=== PATIENT | female | born 2000 | race Hispanic/Latino ===

== ENCOUNTER 2022-07-26 20:39 | Emergency (ER) | payer OTHER ==
--- OUTSIDE RECORDS SUMMARY | 2022-07-26 20:44 | XMS REPORT | Continuity of Care Document ---
:2000 Author Organization [facility] [facility] t Address [address] [place] [address] Care Team Providers Name Role Phone Vero Gardiner Primary Care Physician CARMINE MOODY Attending Clinician Unavailable Carmine Moody NP Attending Clinician Doctor Unassigned, Aldora Attending Clinician Unavailable Erica Bone RN Attending Clinician Unavailable JR CHARLES Attending Clinician Unavailable Shiv Mcgrath Attending Clinician Joys Van Attending Clinician Payers Payer Name Policy Type Policy Number Effective Date Expiration Date Vilma marie [facility] TAP[facility] [id number] 2018 00:00:00 Problems Condition Condition Condition Status Onset Resolution Last Treating Co mments Source Name Details Category Date Date Treatment Clinician Date COVID-19 COVID-19 Disease Active 2019-11 Unive rs virus IgG virus IgG 2-04 ity of antibody antibody 00:00: [place] detected detected 00 Medica l Branch COVID-19 COVID-19 Disease Active 2019-11 Unive rs virus IgG virus IgG 2-04 ity of antibody antibody 00:00: [place] detected detected 00 Medica l Branch BMI BMI Disease Active Univers 30.0-30.9, 30.0-30.9, 6-25 it y of adult adult 00:00: [place] 00 Medical Branch 39 weeks 39 weeks Disease Resolve 2019-112021-03-12 2021-03-12 Univers gestation gestation d 2-19 00:00:00 20:37:50 ity of of of 00:00: [place] 00 [facility] samia Branch Anemia of Anemia of Disease Resolve 2021-03-12 2021-03-12 Univers mother in mother in d 9 00:00:00 20:37:48 it[place] of , , [place] antepartum antepartum 00 Me dical Branch Rh Rh Disease Resolve 2021-03-12 2021-03-12 Univers negative negative d 05-02 00:00:00 20:37:47 it y of state in state in 00:00: [place] antepartum antepartum 00 Me dical period period Branch High risk High risk Disease Resolve 2021-03-12 2021-03-12 Univers teen teen d 6- 00:00:00 20:37:44 [place] second in second 00 Medi samia trimester trimester Bran ch Obesity Obesity Disease Resolve 2021-03-12 2021-03-12 Univers affecting affecting d 6 00:00:00 20:37:46 [place] 00 Medi samia trimester trimester Bran ch Abnormal Abnormal Disease Resolve 2020-05-01 2020-05-01 Univers vision vision d 06-15 00:00:00 15:10:01 ity of screen screen 00:00: [place] 00 Medical Branch Pediatric Pediatric Disease Resolve 2020-05-01 2020-05-01 Univers overweight overweight d 06-15 00:00:00 15:10:03 ity of 00:00: [place] 00 Medical Branch History of History of Disease Resolve 2020-05-01 2020-05-01 Univers eczema as eczema as d 06-15 00:00:00 15:10:02 ity of a child a child 00:00: [place] 00 Medical Branch Allergies, Adverse Reactions, Alerts Allergy Allergy Status Severity Reaction(s) Onset Inactive Treating Comm ents Source Name Type Date Date Clinician NO KNOWN Drug Active Univers ALLERGIE Class ity of S [facility] Social History Social Habit Start Date Stop Date Quantity Comments Source History of Passive smoker [facility] tobacco use [facility] Exposure to 2022-06-24 2022-07-04 Not sure [facility] SARS-CoV-2 00:00:00 11:08:00 [facility] (event) [place] Alcohol intake 2022-02-10 2022-02-10 0 /d [facility] 00:00:00 00:00:00 [facility] Tobacco use and 2021-03-12 2021-03-12 Smokeless tobacco Un iversity of exposure 00:00:00 00:00:00 non-user [facility] Sex Assigned At [birth year] Universit y of 00:00:00 00:00:00 [facility] Smoking Status Start Date Stop Date Source Never smoked tobacco [facility] Medications Ordered Filled Start Stop Current Ordering Indication Dosage Frequency Signature Comments Components Source Medication Medication Date Date Medication? Clinician (SIG) Name Name methylPREDN Yes [id number] Take by Univers ISolone 4 8-29 mouth ity of mg tablets 00:00: [place]INSTRU [place] CTIONS. Medical follow Branch package directions methylPREDN Yes [id number] Take by Univers ISolone 4 8-29 mouth ity of mg tablets 00:00: [place] CTIONS. Medical follow Branch package directions benzonatate Yes [id number] 100mg Take 1 Univers 100 mg 8-28 capsule by ity of capsule 00:00: mouth 3 [place] 00 (three) Medical times Branch daily as needed for Cough. benzonatate Yes [id number] 100mg Take 1 Univers 100 mg 8-28 capsule by ity of capsule 00:00: mouth 3 [place] 00 (three) Medical times Branch daily as needed for Cough. azithromyci 2021- Yes [id number] Take 2 Univers n 250 mg 8-28 -03 tablets by ity of tablet 00:00: 04:59 mouth [place] 00 :00 daily for Medical 1 day, Branch THEN 1 tablet daily for 4 days. Take 500 mg day 1, then 250 mg days 2 to 5. azithromyci 2021- Yes [id number] Take 2 Univers n 250 mg 07-04 tablets by ity of tablet 00:00: 04:59 mouth [place] 00 :00 daily for Medical 1 day, Branch THEN 1 tablet daily for 4 days. Take 500 mg day 1, then 250 mg days 2 to 5. etonogestre 2021- No [id number] 68mg Univers L 02-10-06 ity of (NEXPLANON) 15:45: 14:41 [place] implant 68 00 :00 Medical mg Branch etonogestre 2021- No [id number] 68mg 68 mg, Univers L 02-10 Subdermal, ity of (NEXPLANON) 15:45: 14:41 ONCE NOW, [place] implant 68 00 :00 1 dose, On Med ical mg 02/10/22 Branch at 1045, Routine
Use approved by: [employer] No known No Univers medications 4-06 ity of 10:05: [address] No known No No known Unive rs medications -06 medication it y of 10:05: s [address] docusate 2019-11- No 240mg Take 1 Unive rs calcium 240 12-28 (spontaneou capsule by ity of mg capsule 00:00: 00:00 s vaginal mouth once [place] 00 :00 delivery) daily as Medica l needed for Branch Constipati on. ferrous 2019-11- No 325mg Take 1 Univer s sulfate 325 12-28 (spontaneou tablet by ity of mg (65 mg 00:00: 00:00 s vaginal mouth 2 [place] iron) 00 :00 delivery) (two) Medical tablet times Branch daily. ibuprofen 2019-11- No 600mg Take 1 Univ ers 600 mg 12-28- (spontaneou tablet by ity of tablet 00:00: 00:00 [place] vaginal [place] 00 :[place] delivery) every 6 Medical (six) Branch hours as needed (Pain). Take with food or milk. 2019-11- No 1{tbl} Take 1 Univ ers vitamin 12-28- (spontaneou tablet by ity of w/FA tablet 00:00: 00:00 s vaginal mouth [place] 00 :00 delivery) daily. Medical Branch docusate 2019-11- No 240mg Take 1 Unive rs calcium 240 12-28 (spontaneou capsule by ity of mg capsule 00:00: 00:00 s vaginal mouth once [place] 00 :00 delivery) daily as Medica l needed for Branch Constipati on. ferrous 2019-11- No 325mg Take 1 Univer s sulfate 325 12-28 (spontaneou tablet by ity of mg (65 mg 00:00: 00:00 s vaginal mouth 2 [place] iron) 00 :00 delivery) (two) Medical tablet times Branch daily. ibuprofen 2019-11- No 600mg Take 1 Univ ers 600 mg 12-28 (spontaneou tablet by ity of tablet 00:00: 00:00 [place] vaginal [place] 00 :[place] delivery) every 6 Medical (six) Branch hours as needed (Pain). Take with food or milk. 2019-11- No 1{tbl} Take 1 Univ ers vitamin 12-28 (spontaneou tablet by ity of w/FA tablet 00:00: 00:00 s vaginal mouth [place] 00 :00 delivery) daily. Medical Branch ferrous 2019-11- No Anemia of 325mg Take 1 U nivers sulfate 325 11-12 mother in tablet by ity of mg (65 mg 00:00: 00:00 , mouth 2 [place] iron) 00 :00 antepartum (two) Medical tablet times Branch daily. ascorbic 2019-11- No Anemia of 500mg Take 1 Univers acid, 11-12- mother in tablet by ity of vitamin C, 00:00: 00:00 , mouth 3 [place] 500 mg 00 :00 antepartum (three) Medi samia tablet times Branch daily. ferrous 2019-11- No Anemia of 325mg Take 1 U nivers sulfate 325 11-12- mother in tablet by ity of mg (65 mg 00:00: 00:00 , mouth 2 [place] iron) 00 :00 antepartum (two) Medical tablet times Branch daily. ascorbic 2019-11- No Anemia of 500mg Take 1 Univers acid, 11-12 mother in tablet by ity of vitamin C, 00:00: 00:00 , mouth 3 [place] 500 mg 00 :00 antepartum (three) Medi samia tablet times Branch daily. PNV 67-iron 2020- No High risk 1{capsu Take 1 Univers ps-folate 05-29 teen le} capsule by ity of no.1-dha 00:00: 00:00 [place] (VITAFOL 00 :00 in second daily. Medi samia ULTRA) 29 trimester Branc h mg iron- 1 mg-200 mg Cap PNV 67-iron 2020- No High risk 1{capsu Take 1 Univers ps-folate 05-29 teen le} capsule by ity of no.1-dha 00:00: 00:00 [place] (VITAFOL 00 :00 in second daily. Medi samia ULTRA) 29 trimester Branc h mg iron- 1 mg-200 mg Cap Immunizations Ordered Immunization Filled Immunization Date Status Commen ts Source Name Name TDAP 2020-08-14 Completed University of 00:00:00 [facility] Rho (d) Immune 2020-08-14 Completed University of Globulin 00:00:00 [facility] TDAP 2020-08-14 Completed University of 00:00:00 [facility] Rho (d) Immune 2020-08-14 Completed University of Globulin 00:00:00 [facility] TDAP 2020-08-14 Completed University of 00:00:00 [facility] Rho (d) Immune 2020-08-14 Completed University of Globulin 00:00:00 [facility] TDAP 2020-08-14 Completed University of 00:00:00 [facility] Rho (d) Immune 2020-08-14 Completed University of Globulin 00:00:00 [facility] TDAP 2020-08-14 Completed University of 00:00:00 [facility] Rho (d) Immune 2020-08-14 Completed University of Globulin 00:00:00 [facility] TDAP 2020-08-14 Completed University of 00:00:00 [facility] Rho (d) Immune 2020-08-14 Completed University of Globulin 00:00:00 [facility] TDAP 2020-08-14 Completed University of 00:00:00 [facility] Rho (d) Immune 2020-08-14 Completed University of Globulin 00:00:00 [facility] Influenza Virus 2020-08-01 Completed Universit y of Vaccine Quad .5 mL IM 00:00:00 [place] [facility] 6+ MO Branch Influenza Virus 2020-08-01 Completed Universit y of Vaccine Quad .5 mL IM 00:00:00 [place] 6+ MO Branch Influenza Virus 2020-08-01 Completed Universit y of Vaccine Quad .5 mL IM 00:00:00 [place] 6+ MO Branch Influenza Virus 2020-08-01 Completed Universit y of Vaccine Quad .5 mL IM 00:00:00 [place] 6+ MO Branch Influenza Virus 2020-08-01 Completed Universit y of Vaccine Quad .5 mL IM 00:00:00 [place] 6+ MO Branch Influenza Virus 2020-08-01 Completed Universit y of Vaccine Quad .5 mL IM 00:00:00 [place] 6+ MO Branch Influenza Virus 2020-08-01 Completed Universit y of Vaccine Quad .5 mL IM 00:00:00 [place] 6+ MO Branch Meningococcal 2018-12-21 Completed University of Polysaccharide 00:00:00 [place] Medi samia (groups A, C, Y and Branc h W-135) conjugate vaccine (MCV4P) Meningococcal B, OMV 2018-12-21 Completed Univ ersity of 00:00:00 [facility] Meningococcal 2018-12-21 Completed University of Polysaccharide 00:00:00 [place] Medi samia (groups A, C, Y and Branc h W-135) conjugate vaccine (MCV4P) Meningococcal B, OMV 2018-12-21 Completed Univ ersity of 00:00:00 [facility] Meningococcal 2018-12-21 Completed University of Polysaccharide 00:00:00 [place] Medi samia (groups A, C, Y and Branc h W-135) conjugate vaccine (MCV4P) Meningococcal B, OMV 2018-12-21 Completed Univ ersity of 00:00:00 [facility] Meningococcal 2018-12-21 Completed University of Polysaccharide 00:00:00 [place] Medi samia (groups A, C, Y and Branc h W-135) conjugate vaccine (MCV4P) Meningococcal B, OMV 2018-12-21 Completed Univ ersity of 00:00:00 [facility] Meningococcal 2018-12-21 Completed University of Polysaccharide 00:00:00 [place] Medi samia (groups A, C, Y and Branc h W-135) conjugate vaccine (MCV4P) Meningococcal B, OMV 2018-12-21 Completed Univ ersity of 00:00:00 [facility] Branch Meningococcal 2018-12-21 Completed University of Polysaccharide 00:00:00 [place] Medi samia (groups A, C, Y and Branc h W-135) conjugate vaccine (MCV4P) Meningococcal B, OMV 2018-12-21 Completed Univ ersity of 00:00:00 [facility] Branch Meningococcal 2018-12-21 Completed University of Polysaccharide 00:00:00 [place] Medi samia (groups A, C, Y and Branc h W-135) conjugate vaccine (MCV4P) Meningococcal B, OMV 2018-12-21 Completed Univ ersity of 00:00:00 [facility] HPV9 2016-12-30 Completed University of 00:00:00 [facility] HPV9 2016-12-30 Completed University of 00:00:00 [facility] HPV9 2016-12-30 Completed University of 00:00:00 [facility] HPV9 2016-12-30 Completed University of 00:00:00 [facility] Branch HPV9 2016-12-30 Completed University of 00:00:00 [facility] Branch HPV9 2016-12-30 Completed University of 00:00:00 [facility] Branch HPV9 2016-12-30 Completed University of 00:00:00 [facility] HPV9 2016-06-15 Completed University of 00:00:00 [facility] HPV9 2016-06-15 Completed University of 00:00:00 [facility] HPV9 2016-06-15 Completed University of 00:00:00 [facility] Branch HPV9 2016-06-15 Completed University of 00:00:00 [facility] Branch HPV9 2016-06-15 Completed University of 00:00:00 [facility] Branch HPV9 2016-06-15 Completed University of 00:00:00 [facility] Branch HPV9 2016-06-15 Completed University of 00:00:00 [facility] HPV 2015-06-21 Completed University of 00:00:00 [facility] Meningococcal Vaccine 2015-06-21 Completed Uni versity of 00:00:00 [facility] TDAP 2015-06-21 Completed University of 00:00:00 [facility] HPV 2015-06-21 Completed University of 00:00:00 [facility] Meningococcal Vaccine 2015-06-21 Completed Uni versity of 00:00:00 [facility] TDAP 2015-06-21 Completed University of 00:00:00 [facility] HPV 2015-06-21 Completed University of 00:00:00 [facility] Meningococcal Vaccine 2015-06-21 Completed Uni versity of 00:00:00 [facility] Branch TDAP 2015-06-21 Completed University of 00:00:00 [facility] HPV 2015-06-21 Completed University of 00:00:00 [facility] Meningococcal Vaccine 2015-06-21 Completed Uni versity of 00:00:00 [facility] Branch TDAP 2015-06-21 Completed University of 00:00:00 [facility] HPV 2015-06-21 Completed University of 00:00:00 [facility] Meningococcal Vaccine 2015-06-21 Completed Uni versity of 00:00:00 [facility] Branch TDAP 2015-06-21 Completed University of 00:00:00 [facility] HPV 2015-06-21 Completed University of 00:00:00 [facility] Meningococcal Vaccine 2015-06-21 Completed Uni versity of 00:00:00 [facility] Branch TDAP 2015-06-21 Completed University of 00:00:00 [facility] HPV 2015-06-21 Completed University of 00:00:00 [facility] Meningococcal Vaccine 2015-06-21 Completed Uni versity of 00:00:00 [facility] TDAP 2015-06-21 Completed University of 00:00:00 [facility] Influenza Virus 2012-09-26 Completed Universit y of Vaccine 00:00:00 [facility] Influenza Virus 2012-09-26 Completed Universit y of Vaccine 00:00:00 [facility] Influenza Virus 2012-09-26 Completed Universit y of Vaccine 00:00:00 [facility] Influenza Virus 2012-09-26 Completed Universit y of Vaccine 00:00:00 [facility] Influenza Virus 2012-09-26 Completed Universit y of Vaccine 00:00:00 [facility] Influenza Virus 2012-09-26 Completed Universit y of Vaccine 00:00:00 [facility] Influenza Virus 2012-09-26 Completed Universit y of Vaccine 00:00:00 [facility] Influenza Virus 2011-09-29 Completed Universit y of Vaccine 00:00:00 [facility] Influenza Virus 2011-09-29 Completed Universit y of Vaccine 00:00:00 [facility] Influenza Virus 2011-09-29 Completed Universit y of Vaccine 00:00:00 [facility] Influenza Virus 2011-09-29 Completed Universit y of Vaccine 00:00:00 [facility] Influenza Virus 2011-09-29 Completed Universit y of Vaccine 00:00:00 [facility] Influenza Virus 2011-09-29 Completed Universit y of Vaccine 00:00:00 [facility] Influenza Virus 2011-09-29 Completed Universit y of Vaccine 00:00:00 [facility] DTAP 2007-03-06 Completed University of 00:00:00 [facility] HEPATITIS A 2007-03-06 Completed University of 00:00:00 [facility] Polio (IPV/OPV) 2007-03-06 Completed Universit y of 00:00:00 [facility] Proquad 2007-03-06 Completed University of (MMR/VARICELLA) 00:00:00 [facility] DTAP 2007-03-06 Completed University of 00:00:00 [facility] HEPATITIS A 2007-03-06 Completed University of 00:00:00 [facility] Polio (IPV/OPV) 2007-03-06 Completed Universit y of 00:00:00 [facility] Proquad 2007-03-06 Completed University of (MMR/VARICELLA) 00:00:00 [facility] DTAP 2007-03-06 Completed University of 00:00:00 [facility] HEPATITIS A 2007-03-06 Completed University of 00:00:00 [facility] Polio (IPV/OPV) 2007-03-06 Completed Universit y of 00:00:00 [facility] Proquad 2007-03-06 Completed University of (MMR/VARICELLA) 00:00:00 [facility] DTAP 2007-03-06 Completed University of 00:00:00 [facility] HEPATITIS A 2007-03-06 Completed University of 00:00:00 [facility] Polio (IPV/OPV) 2007-03-06 Completed Universit y of 00:00:00 [facility] Proquad 2007-03-06 Completed University of (MMR/VARICELLA) 00:00:00 [facility] DTAP 2007-03-06 Completed University of 00:00:00 [facility] HEPATITIS A 2007-03-06 Completed University of 00:00:00 [facility] Polio (IPV/OPV) 2007-03-06 Completed Universit y of 00:00:00 [facility] Proquad 2007-03-06 Completed University of (MMR/VARICELLA) 00:00:00 [facility] DTAP 2007-03-06 Completed University of 00:00:00 [facility] HEPATITIS A 2007-03-06 Completed University of 00:00:00 [facility] Polio (IPV/OPV) 2007-03-06 Completed Universit y of 00:00:00 [facility] Proquad 2007-03-06 Completed University of (MMR/VARICELLA) 00:00:00 [facility] DTAP 2007-03-06 Completed University of 00:00:00 [facility] HEPATITIS A 2007-03-06 Completed University of 00:00:00 [facility] Polio (IPV/OPV) 2007-03-06 Completed [facility] (MMR/VARICELLA) 00:00:00 [facility] Proquad 2006-09-02 Completed University of (MMR/VARICELLA) 00:00:00 [facility] HEPATITIS A 2006-09-02 Completed University of 00:00:00 [facility] Proquad 2006-09-02 Completed University of (MMR/VARICELLA) 00:00:00 [facility] HEPATITIS A 2006-09-02 Completed University of 00:00:00 [facility] Proquad 2006-09-02 Completed University of (MMR/VARICELLA) 00:00:00 [facility] HEPATITIS A 2006-09-02 Completed University of 00:00:00 [facility] Proquad 2006-09-02 Completed University of (MMR/VARICELLA) 00:00:00 [facility] HEPATITIS A 2006-09-02 Completed University of 00:00:00 [facility] Proquad 2006-09-02 Completed University of (MMR/VARICELLA) 00:00:00 [facility] HEPATITIS A 2006-09-02 Completed University of 00:00:00 [facility] Proquad 2006-09-02 Completed University of (MMR/VARICELLA) 00:00:00 [facility] HEPATITIS A 2006-09-02 Completed University of 00:00:00 [facility] Proquad 2006-09-02 Completed University of (MMR/VARICELLA) 00:00:00 [facility] HEPATITIS A 2006-09-02 Completed University of 00:00:00 [facility] DTAP 2004-10-22 Completed University of 00:00:00 [facility] HIB 4 Dose Schedule 2004-10-22 Completed Unive rsity of 00:00:00 [facility] Pneumococcal 13 2004-10-22 Completed Universit y of Conjugate, PCV13 00:00:00 [facility] dical (Prevnar 13) Branch Polio (IPV/OPV) 2004-10-22 Completed Universit y of 00:00:00 [facility] DTAP 2004-10-22 Completed University of 00:00:00 [facility] HIB 4 Dose Schedule 2004-10-22 Completed Unive rsity of 00:00:00 [facility] Pneumococcal 13 2004-10-22 Completed Universit y of Conjugate, PCV13 00:00:00 [facility] dical (Prevnar 13) Branch Polio (IPV/OPV) 2004-10-22 Completed Universit y of 00:00:00 [facility] DTAP 2004-10-22 Completed University of 00:00:00 [facility] HIB 4 Dose Schedule 2004-10-22 Completed Unive rsity of 00:00:00 [facility] Pneumococcal 13 2004-10-22 Completed Universit y of Conjugate, PCV13 00:00:00 [facility] dical (Prevnar 13) Branch Polio (IPV/OPV) 2004-10-22 Completed Universit y of 00:00:00 [facility] DTAP 2004-10-22 Completed University of 00:00:00 [facility] HIB 4 Dose Schedule 2004-10-22 Completed Unive rsity of 00:00:00 [facility] Pneumococcal 13 2004-10-22 Completed Universit y of Conjugate, PCV13 00:00:00 [facility] dical (Prevnar 13) Branch Polio (IPV/OPV) 2004-10-22 Completed Universit y of 00:00:00 [facility] DTAP 2004-10-22 Completed University of 00:00:00 [facility] HIB 4 Dose Schedule 2004-10-22 Completed Unive rsity of 00:00:00 [facility] Pneumococcal 13 2004-10-22 Completed Universit y of Conjugate, PCV13 00:00:00 [facility] dical (Prevnar 13) Branch Polio (IPV/OPV) 2004-10-22 Completed Universit y of 00:00:00 [facility] DTAP 2004-10-22 Completed University of 00:00:00 [facility] HIB 4 Dose Schedule 2004-10-22 Completed Unive rsity of 00:00:00 [facility] Pneumococcal 13 2004-10-22 Completed Universit y of Conjugate, PCV13 00:00:00 [place] Me dical (Prevnar 13) Branch Polio (IPV/OPV) 2004-10-22 Completed Universit y of 00:00:00 [facility] DTAP 2004-10-22 Completed University of 00:00:00 [facility] HIB 4 Dose Schedule 2004-10-22 Completed Unive rsity of 00:00:00 [facility] Pneumococcal 13 2004-10-22 Completed Universit y of Conjugate, PCV13 00:00:00 [facility] dical (Prevnar 13) Branch Polio (IPV/OPV) 2004-10-22 Completed Universit y of 00:00:00 [facility] DTAP 2004-02-19 Completed University of 00:00:00 [facility] HIB 4 Dose Schedule 2004-02-19 Completed Unive rsity of 00:00:00 [facility] Pneumococcal 13 2004-02-19 Completed Universit y of Conjugate, PCV13 00:00:00 [facility] dical (Prevnar 13) Branch Polio (IPV/OPV) 2004-02-19 Completed Universit y of 00:00:00 [facility] DTAP 2004-02-19 Completed University of 00:00:00 [facility] HIB 4 Dose Schedule 2004-02-19 Completed Unive rsity of 00:00:00 [facility] Pneumococcal 13 2004-02-19 Completed Universit y of Conjugate, PCV13 00:00:00 [place] Me dical (Prevnar 13) Branch Polio (IPV/OPV) 2004-02-19 Completed Universit y of 00:00:00 [facility] DTAP 2004-02-19 Completed University of 00:00:00 [facility] HIB 4 Dose Schedule 2004-02-19 Completed Unive rsity of 00:00:00 [facility] Pneumococcal 13 2004-02-19 Completed Universit y of Conjugate, PCV13 00:00:00 [place] Me dical (Prevnar 13) Branch Polio (IPV/OPV) 2004-02-19 Completed Universit y of 00:00:00 [facility] DTAP 2004-02-19 Completed University of 00:00:00 [facility] HIB 4 Dose Schedule 2004-02-19 Completed Unive rsity of 00:00:00 [facility] Pneumococcal 13 2004-02-19 Completed Universit y of Conjugate, PCV13 00:00:00 [place] [facility] (Prevnar 13) Branch Polio (IPV/OPV) 2004-02-19 Completed Universit y of 00:00:00 [facility] DTAP 2004-02-19 Completed University of 00:00:00 [facility] HIB 4 Dose Schedule 2004-02-19 Completed Unive rsity of 00:00:00 [facility] Pneumococcal 13 2004-02-19 Completed Universit y of Conjugate, PCV13 00:00:00 [place] [facility] (Prevnar 13) Branch Polio (IPV/OPV) 2004-02-19 Completed Universit y of 00:00:00 [facility] DTAP 2004-02-19 Completed University of 00:00:00 [facility] HIB 4 Dose Schedule 2004-02-19 Completed Unive rsity of 00:00:00 [facility] Pneumococcal 13 2004-02-19 Completed Universit y of Conjugate, PCV13 00:00:00 [place] [facility] (Prevnar 13) Branch Polio (IPV/OPV) 2004-02-19 Completed Universit y of 00:00:00 [facility] DTAP 2004-02-19 Completed University of 00:00:00 [facility] HIB 4 Dose Schedule 2004-02-19 Completed Unive rsity of 00:00:00 [facility] Pneumococcal 13 2004-02-19 Completed Universit y of Conjugate, PCV13 00:00:00 [place] [facility] (Prevnar 13) Branch Polio (IPV/OPV) 2004-02-19 Completed Universit y of 00:00:00 [facility] HIB 4 Dose Schedule 2003-12-16 Completed Unive rsity of 00:00:00 [facility] Hep B, Adol or Pedi 2003-12-16 Completed Unive rsity of Dosage 00:00:00 [facility] MMR 2003-12-16 Completed University of 00:00:00 [facility] Pneumococcal 13 2003-12-16 Completed Universit y of Conjugate, PCV13 00:00:00 [place] [facility] (Prevnar 13) Branch Polio (IPV/OPV) 2003-12-16 Completed Universit y of 00:00:00 [facility] Varicella 2003-12-16 Completed University of (varivax)(chicken 00:00:00 [place] [facility] pox) [facility] DTAP 2003-12-16 Completed University of 00:00:00 [facility] HIB 4 Dose Schedule 2003-12-16 Completed Unive rsity of 00:00:00 [facility] Hep B, Adol or Pedi 2003-12-16 Completed Unive rsity of Dosage 00:00:00 [facility] MMR 2003-12-16 Completed University of 00:00:00 [facility] Pneumococcal 13 2003-12-16 Completed Universit y of Conjugate, PCV13 00:00:00 [facility] dical (Prevnar 13) Branch Polio (IPV/OPV) 2003-12-16 Completed Universit y of 00:00:00 [facility] Varicella 2003-12-16 Completed University of (varivax)(chicken 00:00:00 [place] [facility] pox) [facility] DTAP 2003-12-16 Completed University of 00:00:00 [facility] DTAP 2003-12-16 Completed University of 00:00:00 [facility] HIB 4 Dose Schedule 2003-12-16 Completed Unive rsity of 00:00:00 [facility] Hep B, Adol or Pedi 2003-12-16 Completed Unive rsity of Dosage 00:00:00 [facility] MMR 2003-12-16 Completed University of 00:00:00 [facility] Pneumococcal 13 2003-12-16 Completed Universit y of Conjugate, PCV13 00:00:00 [facility] dical (Prevnar 13) Branch Polio (IPV/OPV) 2003-12-16 Completed Universit y of 00:00:00 [facility] Varicella 2003-12-16 Completed University of (varivax)(chicken 00:00:00 [place] [facility] pox) [facility] DTAP 2003-12-16 Completed University of 00:00:00 [facility] HIB 4 Dose Schedule 2003-12-16 Completed Unive rsity of 00:00:00 [facility] Hep B, Adol or Pedi 2003-12-16 Completed Unive rsity of Dosage 00:00:00 [facility] MMR 2003-12-16 Completed University of 00:00:00 [facility] Pneumococcal 13 2003-12-16 Completed Universit y of Conjugate, PCV13 00:00:00 [facility] dical (Prevnar 13) Branch Polio (IPV/OPV) 2003-12-16 Completed Universit y of 00:00:00 [facility] Varicella 2003-12-16 Completed University of (varivax)(chicken 00:00:00 [place] [facility] pox) Branch DTAP 2003-12-16 Completed University of 00:00:00 [facility] HIB 4 Dose Schedule 2003-12-16 Completed Unive rsity of 00:00:00 [facility] Hep B, Adol or Pedi 2003-12-16 Completed Unive rsity of Dosage 00:00:00 [facility] MMR 2003-12-16 Completed University of 00:00:00 [facility] Pneumococcal 13 2003-12-16 Completed Universit y of Conjugate, PCV13 00:00:00 [facility] dical (Prevnar 13) Branch Polio (IPV/OPV) 2003-12-16 Completed Universit y of 00:00:00 [facility] Varicella 2003-12-16 Completed University of (varivax)(chicken 00:00:00 [place] [facility] pox) Branch DTAP 2003-12-16 Completed University of 00:00:00 [facility] HIB 4 Dose Schedule 2003-12-16 Completed Unive rsity of 00:00:00 [facility] Hep B, Adol or Pedi 2003-12-16 Completed Unive rsity of Dosage 00:00:00 [facility] MMR 2003-12-16 Completed University of 00:00:00 [facility] Pneumococcal 13 2003-12-16 Completed Universit y of Conjugate, PCV13 00:00:00 [facility] dical (Prevnar 13) Branch Polio (IPV/OPV) 2003-12-16 Completed Universit y of 00:00:00 [facility] Varicella 2003-12-16 Completed University of (varivax)(chicken 00:00:00 [place] [facility] pox) Branch DTAP 2003-12-16 Completed University of 00:00:00 [facility] HIB 4 Dose Schedule 2003-12-16 Completed Unive rsity of 00:00:00 [facility] Hep B, Adol or Pedi 2003-12-16 Completed Unive rsity of Dosage 00:00:00 [facility] MMR 2003-12-16 Completed University of 00:00:00 [facility] Pneumococcal 13 2003-12-16 Completed Universit y of Conjugate, PCV13 00:00:00 [facility] dical (Prevnar 13) Branch Polio (IPV/OPV) 2003-12-16 Completed Universit y of 00:00:00 [facility] Varicella 2003-12-16 Completed University of (varivax)(chicken 00:00:00 [place] [facility] pox) Branch HIB 4 Dose Schedule 2003-05-29 Completed Unive rsity of 00:00:00 [facility] Hep B, Adol or Pedi 2003-05-29 Completed Unive rsity of Dosage 00:00:00 [facility] Polio (IPV/OPV) 2003-05-29 Completed Universit y of 00:00:00 [facility] DTAP 2003-05-29 Completed University of 00:00:00 [facility] HIB 4 Dose Schedule 2003-05-29 Completed Unive rsity of 00:00:00 [facility] Hep B, Adol or Pedi 2003-05-29 Completed Unive rsity of Dosage 00:00:00 [facility] Polio (IPV/OPV) 2003-05-29 Completed Universit y of 00:00:00 [facility] DTAP 2003-05-29 Completed University of 00:00:00 [facility] DTAP 2003-05-29 Completed University of 00:00:00 [facility] HIB 4 Dose Schedule 2003-05-29 Completed Unive rsity of 00:00:00 [facility] Hep B, Adol or Pedi 2003-05-29 Completed Unive rsity of Dosage 00:00:00 [facility] Polio (IPV/OPV) 2003-05-29 Completed Universit y of 00:00:00 [facility] DTAP 2003-05-29 Completed University of 00:00:00 [facility] HIB 4 Dose Schedule 2003-05-29 Completed Unive rsity of 00:00:00 [facility] Hep B, Adol or Pedi 2003-05-29 Completed Unive rsity of Dosage 00:00:00 [facility] Polio (IPV/OPV) 2003-05-29 Completed Universit y of 00:00:00 [facility] DTAP 2003-05-29 Completed University of 00:00:00 [facility] HIB 4 Dose Schedule 2003-05-29 Completed Unive rsity of 00:00:00 [facility] Hep B, Adol or Pedi 2003-05-29 Completed Unive rsity of Dosage 00:00:00 [facility] Polio (IPV/OPV) 2003-05-29 Completed Universit y of 00:00:00 [facility] DTAP 2003-05-29 Completed University of 00:00:00 [facility] HIB 4 Dose Schedule 2003-05-29 Completed Unive rsity of 00:00:00 [facility] Branch Hep B, Adol or Pedi 2003-05-29 Completed Unive rsity of Dosage 00:00:00 [facility] Polio (IPV/OPV) 2003-05-29 Completed Universit y of 00:00:00 [facility] DTAP 2003-05-29 Completed University of 00:00:00 [facility] HIB 4 Dose Schedule 2003-05-29 Completed Unive rsity of 00:00:00 [facility] Hep B, Adol or Pedi 2003-05-29 Completed Unive rsity of Dosage 00:00:00 [facility] Polio (IPV/OPV) 2003-05-29 Completed Universit y of 00:00:00 [facility] Hep B, Adol or Pedi 2002 Completed Unive rsity of Dosage 00:00:00 [facility] Hep B, Adol or Pedi 2002 Completed Unive rsity of Dosage 00:00:00 [facility] Hep B, Adol or Pedi 2002 Completed Unive rsity of Dosage 00:00:00 [facility] Branch Hep B, Adol or Pedi 2002 Completed Unive rsity of Dosage 00:00:00 [facility] Hep B, Adol or Pedi 2002 Completed Unive rsity of Dosage 00:00:00 [facility] Hep B, Adol or Pedi 2002 Completed Unive rsity of Dosage 00:00:00 [facility] Branch Hep B, Adol or Pedi 2002 Completed Unive rsity of Dosage 00:00:00 [facility] Vital Signs Vital Name Observation Time Observation Value Comments Source Systolic blood 2022-07-04 16:08:00 131 mm[Hg] Univer sity of pressure [facility] Diastolic blood 2022-07-04 16:08:00 79 mm[Hg] Unive rsity of pressure [facility] Heart rate 2022-07-04 16:08:00 101 /min [facility] Body temperature 2022-07-04 16:08:00 37.11 Kori [facility] Respiratory rate 2022-07-04 16:08:00 18 /min Univ ersity of [facility] Body height 2022-07-04 16:08:00 165.1 cm [facility] Body weight 2022-07-04 16:08:00 115.667 kg [facility] BMI 2022-07-04 16:08:00 42.43 kg/m2 Universi ty of [facility] Oxygen saturation in 2022-07-04 16:08:00 98 /min University of Arterial blood by [facility] Pulse oximetry Branch Systolic blood 2022-02-10 14:15:00 125 mm[Hg] Univer sity of pressure [facility] Diastolic blood 2022-02-10 14:15:00 70 mm[Hg] Unive rsity of pressure [facility] Heart rate 2022-02-10 14:15:00 80 /min Universi ty of [facility] Body temperature 2022-02-10 14:15:00 36.61 K[place] Univ ersity of [facility] Respiratory rate 2022-02-10 14:15:00 16 /min Univ ersity of [facility] Body height 2022-02-10 14:15:00 165.1 cm [facility] Body weight 2022-02-10 14:15:00 115.849 kg [facility] BMI 2022-02-10 14:15:00 42.50 kg/m2 Universi ty of [facility] Body mass index 2022-02-10 14:15:00 98.83 % Unive rsity of (BMI) [Percentile] [facility] ical Per age and sex Branch Systolic blood 2021-03-12 20:42:00 109 mm[Hg] Univer sity of pressure [facility] Diastolic blood 2021-03-12 20:42:00 70 mm[Hg] Unive rsity of pressure [facility] Heart rate 2021-03-12 20:42:00 82 /min [facility] Body temperature 2021-03-12 20:42:00 36.5 [place] Respiratory rate 2021-03-12 20:42:00 16 /min [facility] Body height 2021-03-12 20:42:00 165.1 cm [facility] Body weight 2021-03-12 20:42:00 92.534 kg [facility] BMI 2021-03-12 20:42:00 33.95 kg/m2 [facility] Procedures Procedure Date / Time Performing Clinician Source Performed CONSENT/REFUSAL FOR 2022-07-04 16:03:44 Doctor Unassigned, No Un [facility] DIAGNOSIS AND TREATMENT [facility] POCT TEST 2022-02-10 14:17:00 Shiv Sommers [facility] CONSENT FOR 2022-02-10 05:01:00 Doctor Unassigned, No [facility] CONTRACEPTION Name [facility] POCT TEST 2021-03-12 20:48:00 Josy Alexander [facility] Plan of Care Planned Activity Planned Date Details Comments Source Future Scheduled 2030-08-14 DTaP,Tdap,and Td Univers ity of Test 00:00:00 Vaccines (7 - Td) [facility] [code = Branch DTaP,Tdap,and Td Vaccines (7 - Td)] Future Scheduled 2030-08-14 DTaP,Tdap,and Td Univers ity of Test 00:00:00 Vaccines (7 - Td) [facility] [code = Branch DTaP,Tdap,and Td Vaccines (7 - Td)] Future Scheduled 2021-10-09 Screening for University of Test 00:00:00 Chlamydia [facility] trachomatis [facility] (procedure) [code = 013615576] Future Scheduled 2021-10-09 Screening for University of Test 00:00:00 Chlamydia [facility] trachomatis [facility] (procedure) [code = 957029009] Future Scheduled 2021-05-01 Depression screening Uni versity of Test 00:00:00 (procedure) [code = [place] [facility] 896919347] Branch Future Scheduled 2021-05-01 MENINGOCOCCAL B Postponed from Univer sity of Test 00:00:00 VACCINES (2 of - 01/18/2019 [place] [facility] Risk Bexsero 2-dose ( or Branch series) [code = ) MENINGOCOCCAL B VACCINES (2 of 2 - Risk Bexsero 2-dose series)] Future Scheduled 2021-05-01 Depression screening Uni versity of Test 00:00:00 (procedure) [code = [facility] 969056711] Branch Future Scheduled 2021-05-01 MENINGOCOCCAL B Postponed from Univer sity of Test 00:00:00 VACCINES (2 of 2 - 01/18/2019 [place] [facility] Risk Bexsero 2-dose ( or Branch series) [code = ) MENINGOCOCCAL B VACCINES (2 of 2 - Risk Bexsero 2-dose series)] Future Scheduled 2020-11-24 Hepatitis C University of Test 00:00:00 screening [place] [facility] (procedure) [code = [facility] [id number]] Future Scheduled 2020-11-24 Hepatitis C University of Test 00:00:00 screening [facility] (procedure) [code = [place] 211792801] Future Scheduled 2018-11-24 SARS-CoV-2 University of Test 00:00:00 (COVID-19) Vaccine [place] [facility] (1) [code = Branch SARS-CoV-2 (COVID-19) Vaccine (1)] Future Scheduled 2018-11-24 SARS-CoV-2 University of Test 00:00:00 (COVID-19) Vaccine [place] [facility] (1) [code = Branch SARS-CoV-2 (COVID-19) Vaccine (1)] Future Scheduled GC & CHLAMYDIA Universit y of Test AMPLIFIED ASSAY [place] [facility] [code = 07619-7] Branch Future Scheduled HIV 1/2 AG-AB WITH Unive rsity of Test REFLEX [code = [facility] 77236-6] Branch Future Scheduled GALV ONLY - SYPHILIS Uni versity of Test IGG/IGM [code = [place] [facility] 81880-6] Branch Future Scheduled TRICHOMONAS University of Test AMPLIFIED ASSAY [place] [facility] [code = 72440-4] Branch Future Scheduled GC & CHLAMYDIA Universit y of Test AMPLIFIED ASSAY [place] [facility] [code = 06857-8] Branch Future Scheduled HIV 1/2 AG-AB WITH Unive rsity of Test REFLEX [code = [facility] 98658-2] Branch Future Scheduled GALV ONLY - SYPHILIS Uni versity of Test IGG/IGM [code = [place] [facility] 83717-5] Branch Future Scheduled TRICHOMONAS University of Test AMPLIFIED ASSAY [facility] [code = 00050-0] Branch Encounters Start End Encounter Admission Attending Care Care Encounter Source Date/Time Date/Time Type Type Clinicians Facility Department ID 2022-07-04 2022-07-04 Emergency X [facility] ERT [id number] Univers 11:09:00 11:25:00 CARMINE ity of [facility] 2022-07-04 2022-07-04 Emergency [facility] [id number] Univers 11:09:00 11:25:00 Carmine Robertson [place] [id number] ity of [place] [facility]2.7.2.686 [facility] [id number] 084 [place] 2022-07-04 2022-07-04 Orders Doctor TEJADA [id number] Univers 00:00:00 00:00:00 Only Unassigned, [place] [id number] ity of [place] [facility] 4.2.7.2.686 Ted as [id number] [facility] 009 [place] 2022-07-04 2022-07-04 Letter Erica Bone [id number] Univers 00:00:00 00:00:00 (Out) [place] [id number] it y of [facility] 4.2.7.2.686 Ted as [id number] [facility] 019 [place] 2022-03-15 2022-03-15 Outpatient R ARACELI [facility] [id number] Univers 09:30:00 09:30:00 JR ity o f [facility] 2022-02-10 2022-02-10 [facility] [id number] Univers 09:00:00 09:57:39 Visit Shiv Dominguez [employer] [id number] ity of [facility] [id number] Ted as MATERNAL [id number] Med ical & CHILD [address] [place] [address] 2022-02-10 2022-02-10 Orders Doctor MALLORY [id number] 00:00:00 00:00:00 Only Unassigned, [place] [id number] ity of [place] [facility] 4.2.7.2.686 [facility] as [id number] [address] Results Test Description Test Time Test Comments Results Result Comments Source POCT TEST 2022-02-10 14:17:00 Test Item Value Reference Range Interpretation Comme nts POCT PREG (test code = 1605) Negative On board controls acceptable with C Line (test code = 3574) Yes POCT PREG LOT # (test code = 3575) POCT PREG TEST DATE (test code = 3576[id number] 20:48:00 Test Item Value Reference Range Interpretation Comments POCT PREG (test code = 1605) Negative On board controls acceptable with C Yes Line (test code = 3574) POCT PREG LOT # (test code = 3575) POCT PREG TEST DATE (test code = 3576) Lab Interpretation (test code = Normal 49087-2) [facility] [id number] 20:48:00 Test Item Value Reference Range Interpretation Comments POCT PREG (test code = 1605) Negative On board controls acceptable with C Yes Line (test code = 3574) POCT PREG LOT # (test code = 3575) POCT PREG TEST DATE (test code = 3576) Lab Interpretation (test code = Normal 91649-5) [facility]
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
[2022-07-28 03:07] VITALS: BP 135/66; TEMP 98.4; O2SAT 100
== END 2022-07-26 21:00 | disposition home or self-care (01) ==
LOC: ER 20:39
DX: M79.10 Myalgia, unspecified site (principal); V49.49XA Driver injured in collision with other motor vehicles in traffic accident, initial encounter
CPT/HCPCS: 99284